=== PATIENT | female | born 1980 | race African-American/Black ===

== ENCOUNTER → 2023-12-27 | Outpatient (CLI) | payer OTHER, SELFPAY ==
--- NOTE | 2023-12-27 11:05 | RAD_ITS ---
STUDY: X-RAY - LUMBOSACRAL SPINE REASON FOR EXAM: Female, 43 years old. Atraumatic back pain. TECHNIQUE: 6 view(s) of the lumbosacral spine, including lateral flexion and extension views, were obtained. COMPARISON: None FINDINGS: Normal lumbar lordosis. No scoliosis. Normal alignment of the vertebral bodies. Normal vertebral bodies and endplates. Normal disc space heights. Limited flexion and extension with no abnormal motion. Normal bilateral sacral ala, sacroiliac joints, and visualized sacrum. Phleboliths. RAD/L/S Spine Comp/w Bending Views IMPRESSION: Limited flexion and extension with no abnormal motion. No other abnormality. Electronically Signed: Blanco Flores MD at 10:00 EDT ,
== END | disposition home or self-care (01) ==
PROVIDERS: PCP Family Medicine; Referring Provider Anesthesiology; Visit Provider Anesthesiology
DX: M54.16 Radiculopathy, lumbar region (principal)
CPT/HCPCS: 72114